=== PATIENT | female | born 1965 | race Asian ===

== ENCOUNTER → 2019-08-13 | Outpatient (CLI) | payer OTHER | END | disposition still patient (30) | LOC: LAB 02:07 | DX: Z03.818 Encounter for observation for suspected exposure to other biological agents ruled out (principal) | CPT/HCPCS: U0003-CS ==

== ENCOUNTER 2019-09-11 02:06 | Emergency (ER) | payer OTHER ==
[~2019-09-11] VITALS: Ht 154.9 cm; Wt 76.7 kg
[2019-09-11 02:18] VITALS: BP 133/77
--- NOTE | 2019-09-14 | NUR ---
RECEIVED A CALL FROM LAB REPORTING NEGATIVE COVID TEST RESULT
== END 2019-09-12 03:21 | disposition home or self-care (01) ==
LOC: ER 02:08
DX: Z03.818 Encounter for observation for suspected exposure to other biological agents ruled out (principal)
CPT/HCPCS: 99283; C9803; U0003

== ENCOUNTER → 2019-09-18 | Emergency (ER) | payer OTHER ==
[~2019-09-18] VITALS: Ht 154.9 cm; Wt 75.3 kg
[2019-09-18 08:00] VITALS: BP 126/85
--- NOTE | 2019-09-18 08:05 | NUR ---
COVID SWAB OBTAINED AND SENT TO LAB.
--- NOTE | 2019-09-18 08:16 | NUR ---
Patient discharged to home in stable condition. Written and verbal after care instructions given. Patient verbalizes understanding of instruction.
== END | disposition home or self-care (01) ==
LOC: ER 07:49
DX: Z11.59 Encounter for screening for other viral diseases (principal)
CPT/HCPCS: 99283; C9803; U0003

== ENCOUNTER 2019-10-02 01:42 | Emergency (ER) | payer OTHER ==
[~2019-10-02] VITALS: Ht 154.9 cm; Wt 75.3 kg
[2019-10-02 01:50] VITALS: BP 106/68
--- NOTE | 2019-10-02 02:03 | NUR ---
COVID SWAB COLLECTED AND SENT TO LAB
== END 2019-10-02 02:05 | disposition home or self-care (01) ==
LOC: ER 01:45
DX: Z11.59 Encounter for screening for other viral diseases (principal)
CPT/HCPCS: 99283; C9803; U0003

== ENCOUNTER 2019-10-07 04:06 | Emergency (ER) | payer OTHER ==
[~2019-10-07] VITALS: Ht 154.9 cm; Wt 75.3 kg
[2019-10-07 04:08] VITALS: BP 139/68
== END 2019-10-07 04:56 | disposition home or self-care (01) ==
LOC: ER 04:06
DX: Z03.818 Encounter for observation for suspected exposure to other biological agents ruled out (principal); I10 Essential (primary) hypertension
CPT/HCPCS: 99283; C9803; U0003

== ENCOUNTER 2019-10-17 10:31 | Emergency (ER) | payer OTHER ==
[~2019-10-17] VITALS: Ht 154.9 cm; Wt 73.5 kg
[2019-10-17 10:38] VITALS: BP 127/84
--- NOTE | 2019-10-17 11:00 | NUR ---
brookid 19 collected and sent to lab
--- NOTE | 2019-10-17 11:02 | NUR ---
Patient discharged to home in stable condition. Written and verbal after care instructions given. Patient verbalizes understanding of instruction.
== END 2019-10-17 11:02 | disposition home or self-care (01) ==
LOC: ER 10:32
DX: Z11.59 Encounter for screening for other viral diseases (principal); I10 Essential (primary) hypertension
CPT/HCPCS: 99283; C9803; U0003

== ENCOUNTER 2019-10-27 03:24 | Emergency (ER) | payer OTHER ==
[~2019-10-27] VITALS: Ht 154.9 cm; Wt 73.5 kg
[2019-10-27 03:27] VITALS: BP 138/64
--- NOTE | 2019-10-27 03:36 | NUR ---
CORONAVIRUS SWAB SAMPLE COLLECTED AND SENT TO THE LAB.
== END 2019-10-27 03:36 | disposition home or self-care (01) ==
LOC: ER 03:25
DX: Z20.828 Contact with and (suspected) exposure to other viral communicable diseases (principal); I10 Essential (primary) hypertension
CPT/HCPCS: 99283; C9803; U0003

== ENCOUNTER 2019-11-10 03:53 | Emergency (ER) | payer OTHER ==
[~2019-11-10] VITALS: Ht 154.9 cm; Wt 73.5 kg
[2019-11-10 03:55] VITALS: BP 143/62
--- NOTE | 2019-11-10 04:19 | NUR ---
COVID SWAB DONE AND SENT TO LAB
== END 2019-11-10 04:20 | disposition home or self-care (01) ==
LOC: ER 03:56
DX: Z20.828 Contact with and (suspected) exposure to other viral communicable diseases (principal); I10 Essential (primary) hypertension
CPT/HCPCS: 99283; C9803; U0003

== ENCOUNTER 2019-11-19 01:51 | Emergency (ER) | payer OTHER ==
[~2019-11-19] VITALS: Ht 154.9 cm; Wt 73.5 kg
[2019-11-19 01:55] VITALS: BP 125/62
--- NOTE | 2019-11-19 02:15 | NUR ---
COVID SWAB COLLECT AND SENT TO LAB.
== END 2019-11-19 02:15 | disposition home or self-care (01) ==
LOC: ER 01:52
DX: Z20.828 Contact with and (suspected) exposure to other viral communicable diseases (principal); I10 Essential (primary) hypertension
CPT/HCPCS: 99283; C9803; U0003

== ENCOUNTER 2019-12-02 02:43 | Emergency (ER) | payer OTHER ==
[~2019-12-02] VITALS: Ht 154.9 cm; Wt 73.5 kg
[2019-12-02 02:43] VITALS: BP 128/77
== END 2019-12-02 02:56 | disposition home or self-care (01) ==
LOC: ER 02:44
DX: Z20.828 Contact with and (suspected) exposure to other viral communicable diseases (principal); I10 Essential (primary) hypertension
CPT/HCPCS: 99283; C9803; U0003

== ENCOUNTER 2019-12-16 01:07 | Emergency (ER) | payer OTHER ==
[~2019-12-16] VITALS: Ht 154.9 cm; Wt 73.5 kg
[2019-12-16 01:10] VITALS: BP 128/62
--- NOTE | 2019-12-17 02:32 | NUR ---
LAB CALLED REGARDING NEGATIVE COVID RESULT.
== END 2019-12-16 01:23 | disposition home or self-care (01) ==
LOC: ER 01:11
DX: Z20.828 Contact with and (suspected) exposure to other viral communicable diseases (principal); I10 Essential (primary) hypertension
CPT/HCPCS: 99283; C9803; U0003

== ENCOUNTER 2019-12-20 18:00 | Emergency (ER) | payer OTHER ==
[~2019-12-20] VITALS: Ht 154.9 cm; Wt 72.6 kg
[2019-12-20 18:04] VITALS: BP 135/81
== END 2019-12-20 19:10 | disposition home or self-care (01) ==
LOC: ER 18:10
DX: J02.9 Acute pharyngitis, unspecified (principal); Z20.828 Contact with and (suspected) exposure to other viral communicable diseases; I10 Essential (primary) hypertension
CPT/HCPCS: 99283; C9803; U0003

== ENCOUNTER 2019-12-29 05:43 | Emergency (ER) | payer OTHER ==
[~2019-12-29] VITALS: Ht 154.9 cm; Wt 72.6 kg
[2019-12-29 05:45] VITALS: BP 126/61
== END 2019-12-29 06:08 | disposition home or self-care (01) ==
LOC: ER 05:43
DX: Z20.828 Contact with and (suspected) exposure to other viral communicable diseases (principal); I10 Essential (primary) hypertension
CPT/HCPCS: 99283; C9803; U0003

== ENCOUNTER 2020-01-05 02:16 | Emergency (ER) | payer OTHER ==
[~2020-01-05] VITALS: Ht 154.9 cm; Wt 72.6 kg
[2020-01-05 02:17] VITALS: BP 134/61
== END 2020-01-05 02:30 | disposition home or self-care (01) ==
LOC: ER 02:16
DX: Z20.828 Contact with and (suspected) exposure to other viral communicable diseases (principal); I10 Essential (primary) hypertension
CPT/HCPCS: 99283; C9803; U0003

== ENCOUNTER 2020-01-12 04:37 | Emergency (ER) | payer OTHER ==
[~2020-01-12] VITALS: Ht 154.9 cm; Wt 72.6 kg
[2020-01-12 04:40] VITALS: BP 132/72
== END 2020-01-12 04:53 | disposition home or self-care (01) ==
LOC: ER 04:37
DX: Z20.828 Contact with and (suspected) exposure to other viral communicable diseases (principal)
CPT/HCPCS: 99283; C9803; U0003

== ENCOUNTER 2020-01-27 01:06 | Emergency (ER) | payer OTHER ==
[~2020-01-27] VITALS: Ht 165.1 cm; Wt 72.6 kg
[2020-01-27 01:10] VITALS: BP 135/68
--- NOTE | 2020-01-27 01:42 | NUR ---
Patient discharged to home in stable condition. Written and verbal after care instructions given. Patient verbalizes understanding of instruction.
== END 2020-01-27 01:42 | disposition home or self-care (01) ==
LOC: ER 01:09
DX: Z20.828 Contact with and (suspected) exposure to other viral communicable diseases (principal); I10 Essential (primary) hypertension
CPT/HCPCS: 99283; C9803; U0003

== ENCOUNTER 2020-02-02 02:28 | Emergency (ER) | payer OTHER ==
[~2020-02-02] VITALS: Ht 165.1 cm; Wt 72.6 kg
[2020-02-02 02:29] VITALS: BP 137/85
== END 2020-02-02 02:50 | disposition home or self-care (01) ==
LOC: ER 02:28
DX: Z20.828 Contact with and (suspected) exposure to other viral communicable diseases (principal); I10 Essential (primary) hypertension
CPT/HCPCS: 99283; C9803; U0003

== ENCOUNTER 2020-02-09 04:48 | Emergency (ER) | payer OTHER ==
[~2020-02-09] VITALS: Ht 165.1 cm; Wt 72.6 kg
[2020-02-09 04:51] VITALS: BP 127/68
== END 2020-02-09 05:08 | disposition home or self-care (01) ==
LOC: ER 04:48
DX: Z20.828 Contact with and (suspected) exposure to other viral communicable diseases (principal); I10 Essential (primary) hypertension
CPT/HCPCS: 99283; C9803; U0003

== ENCOUNTER 2020-02-17 03:34 | Emergency (ER) | payer OTHER ==
[~2020-02-17] VITALS: Ht 165.1 cm; Wt 72.6 kg
[2020-02-17 03:34] VITALS: BP 121/69
== END 2020-02-17 03:50 | disposition home or self-care (01) ==
LOC: ER 03:38
DX: Z20.828 Contact with and (suspected) exposure to other viral communicable diseases (principal); I10 Essential (primary) hypertension
CPT/HCPCS: 99283; C9803; U0003

== ENCOUNTER 2020-02-23 02:34 | Emergency (ER) | payer OTHER ==
[~2020-02-23] VITALS: Ht 165.1 cm; Wt 72.6 kg
[2020-02-23 02:37] VITALS: BP 132/68
== END 2020-02-23 02:47 | disposition home or self-care (01) ==
LOC: ER 02:36
DX: Z20.828 Contact with and (suspected) exposure to other viral communicable diseases (principal); I10 Essential (primary) hypertension
CPT/HCPCS: 99283; C9803; U0003

== ENCOUNTER 2020-03-02 04:37 | Emergency (ER) | payer OTHER ==
[~2020-03-02] VITALS: Ht 165.1 cm; Wt 72.6 kg
[2020-03-02 04:40] VITALS: BP 132/64
--- NOTE | 2020-03-02 05:00 | NUR ---
alecia lafleur collected. sent to lab
== END 2020-03-02 05:01 | disposition home or self-care (01) ==
LOC: ER 04:44
DX: Z20.828 Contact with and (suspected) exposure to other viral communicable diseases (principal); I10 Essential (primary) hypertension
CPT/HCPCS: 99283; C9803; U0003

== ENCOUNTER 2020-03-08 02:32 | Emergency (ER) | payer OTHER ==
[~2020-03-08] VITALS: Ht 165.1 cm; Wt 72.6 kg
[2020-03-08 02:37] VITALS: BP 141/88
== END 2020-03-08 02:40 | disposition home or self-care (01) ==
LOC: ER 02:32
DX: Z20.828 Contact with and (suspected) exposure to other viral communicable diseases (principal); I10 Essential (primary) hypertension
CPT/HCPCS: 99283; C9803; U0003

== ENCOUNTER 2020-03-10 02:49 | Emergency (ER) | payer OTHER ==
[~2020-03-10] VITALS: Ht 165.1 cm; Wt 72.6 kg
[2020-03-10 02:52] VITALS: BP 125/64
== END 2020-03-10 03:30 | disposition home or self-care (01) ==
LOC: ER 02:50
DX: Z20.828 Contact with and (suspected) exposure to other viral communicable diseases (principal)
CPT/HCPCS: 99283; C9803; U0003

== ENCOUNTER 2020-03-17 03:26 | Emergency (ER) | payer OTHER ==
[~2020-03-17] VITALS: Ht 165.1 cm; Wt 72.6 kg
[2020-03-17 03:30] VITALS: BP 128/67
== END 2020-03-17 03:57 | disposition home or self-care (01) ==
LOC: ER 03:27
DX: Z20.828 Contact with and (suspected) exposure to other viral communicable diseases (principal)
CPT/HCPCS: 99283; C9803; U0003

== ENCOUNTER 2020-03-18 04:39 | Emergency (ER) | payer OTHER ==
[~2020-03-18] VITALS: Ht 165.1 cm; Wt 72.6 kg
[2020-03-18 04:41] VITALS: BP 127/68
== END 2020-03-18 05:12 | disposition home or self-care (01) ==
LOC: ER 04:46
DX: Z20.828 Contact with and (suspected) exposure to other viral communicable diseases (principal); I10 Essential (primary) hypertension
CPT/HCPCS: 99283; C9803; U0003

== ENCOUNTER 2020-03-22 02:55 | Emergency (ER) | payer OTHER ==
[~2020-03-22] VITALS: Ht 165.1 cm; Wt 72.6 kg
[2020-03-22 02:58] VITALS: BP 119/73
== END 2020-03-22 03:22 | disposition home or self-care (01) ==
LOC: ER 02:55
DX: Z20.822 Contact with and (suspected) exposure to COVID-19 (principal)
CPT/HCPCS: 99283; C9803; U0003

== ENCOUNTER 2020-03-29 02:02 | Emergency (ER) | payer OTHER ==
[~2020-03-29] VITALS: Ht 165.1 cm; Wt 72.6 kg
[2020-03-29 02:03] VITALS: BP 119/68
== END 2020-03-29 02:18 | disposition home or self-care (01) ==
LOC: ER 02:03
DX: Z20.822 Contact with and (suspected) exposure to COVID-19 (principal); I10 Essential (primary) hypertension
CPT/HCPCS: 99283; C9803; U0003

== ENCOUNTER 2020-03-31 03:19 | Emergency (ER) | payer OTHER ==
[~2020-03-31] VITALS: Ht 165.1 cm; Wt 72.6 kg
[2020-03-31 03:30] VITALS: BP 134/82
== END 2020-03-31 04:02 | disposition home or self-care (01) ==
LOC: ER 03:26
DX: Z20.822 Contact with and (suspected) exposure to COVID-19 (principal); I10 Essential (primary) hypertension
CPT/HCPCS: 99283; C9803; U0003

== ENCOUNTER 2020-04-05 03:08 | Emergency (ER) | payer OTHER ==
[~2020-04-05] VITALS: Ht 165.1 cm; Wt 72.6 kg
[2020-04-05 03:13] VITALS: BP 134/85
== END 2020-04-05 03:49 | disposition home or self-care (01) ==
LOC: ER 03:08
DX: Z20.822 Contact with and (suspected) exposure to COVID-19 (principal)
CPT/HCPCS: 99283; C9803; U0003

== ENCOUNTER 2020-04-07 03:29 | Emergency (ER) | payer OTHER ==
[~2020-04-07] VITALS: Ht 165.1 cm; Wt 72.6 kg
[2020-04-07 03:35] VITALS: BP 132/64
== END 2020-04-07 04:36 | disposition home or self-care (01) ==
LOC: ER 03:29
DX: Z20.822 Contact with and (suspected) exposure to COVID-19 (principal); I10 Essential (primary) hypertension
CPT/HCPCS: 99283; C9803; U0003

== ENCOUNTER 2020-04-12 02:23 | Emergency (ER) | payer OTHER ==
[~2020-04-12] VITALS: Ht 165.1 cm; Wt 72.6 kg
[2020-04-12 02:25] VITALS: BP 132/77
== END 2020-04-12 02:51 | disposition home or self-care (01) ==
LOC: ER 02:24
DX: Z20.822 Contact with and (suspected) exposure to COVID-19 (principal); I10 Essential (primary) hypertension
CPT/HCPCS: 99283; C9803; U0003

== ENCOUNTER 2020-04-14 01:59 | Emergency (ER) | payer OTHER ==
[~2020-04-14] VITALS: Ht 165.1 cm; Wt 72.6 kg
[2020-04-14 02:03] VITALS: BP 135/79
== END 2020-04-14 02:50 | disposition home or self-care (01) ==
LOC: ER 02:01
DX: Z20.822 Contact with and (suspected) exposure to COVID-19 (principal); I10 Essential (primary) hypertension
CPT/HCPCS: 99283; C9803; U0003

== ENCOUNTER 2020-04-19 00:59 | Emergency (ER) | payer OTHER ==
[~2020-04-19] VITALS: Ht 165.1 cm; Wt 72.6 kg
[2020-04-19 01:09] VITALS: BP 141/76
== END 2020-04-19 01:35 | disposition home or self-care (01) ==
LOC: ER 01:02
DX: Z20.822 Contact with and (suspected) exposure to COVID-19 (principal)
CPT/HCPCS: 99283; C9803; U0003

== ENCOUNTER 2020-04-20 23:37 | Emergency (ER) | payer OTHER ==
[~2020-04-20] VITALS: Ht 165.1 cm; Wt 72.6 kg
[2020-04-20 23:49] VITALS: BP 149/81
== END 2020-04-21 00:09 | disposition home or self-care (01) ==
LOC: ER 23:45
DX: Z20.822 Contact with and (suspected) exposure to COVID-19 (principal); I10 Essential (primary) hypertension
CPT/HCPCS: 99283; C9803; U0003

== ENCOUNTER 2020-04-26 01:47 | Emergency (ER) | payer OTHER ==
[~2020-04-26] VITALS: Ht 165.1 cm; Wt 61.2 kg
[2020-04-26 01:50] VITALS: BP 139/64
== END 2020-04-26 02:01 | disposition home or self-care (01) ==
LOC: ER 01:47
DX: Z20.822 Contact with and (suspected) exposure to COVID-19 (principal); I10 Essential (primary) hypertension; R03.0 Elevated blood-pressure reading, without diagnosis of hypertension
CPT/HCPCS: 99283; C9803; U0003

== ENCOUNTER 2020-05-03 01:48 | Emergency (ER) | payer OTHER ==
[~2020-05-03] VITALS: Ht 165.1 cm; Wt 61.2 kg
[2020-05-03 01:50] VITALS: BP 115/62
== END 2020-05-03 03:05 | disposition home or self-care (01) ==
LOC: ER 01:49
DX: Z20.822 Contact with and (suspected) exposure to COVID-19 (principal); I10 Essential (primary) hypertension
CPT/HCPCS: 99283; C9803; U0003

== ENCOUNTER 2020-05-05 02:01 | Emergency (ER) | payer OTHER ==
[~2020-05-05] VITALS: Ht 165.1 cm; Wt 61.2 kg
[2020-05-05 02:09] VITALS: BP 132/66
== END 2020-05-05 03:07 | disposition home or self-care (01) ==
LOC: ER 02:01
DX: Z20.822 Contact with and (suspected) exposure to COVID-19 (principal); I10 Essential (primary) hypertension
CPT/HCPCS: 99283; C9803; U0003

== ENCOUNTER 2020-05-10 01:23 | Emergency (ER) | payer OTHER ==
[~2020-05-10] VITALS: Ht 165.1 cm; Wt 61.2 kg
[2020-05-10 01:26] VITALS: BP 133/61
== END 2020-05-10 01:45 | disposition home or self-care (01) ==
LOC: ER 01:23
DX: Z20.822 Contact with and (suspected) exposure to COVID-19 (principal); I10 Essential (primary) hypertension
CPT/HCPCS: 99283; C9803; U0003

== ENCOUNTER 2020-05-19 01:12 | Emergency (ER) | payer OTHER ==
[~2020-05-19] VITALS: Ht 165.1 cm; Wt 61.2 kg
[2020-05-19 01:13] VITALS: BP 132/65
== END 2020-05-19 01:29 | disposition home or self-care (01) ==
LOC: ER 01:12
DX: Z20.822 Contact with and (suspected) exposure to COVID-19 (principal); I10 Essential (primary) hypertension
CPT/HCPCS: 99283; C9803; U0003

== ENCOUNTER 2020-05-24 02:17 | Emergency (ER) | payer OTHER ==
[~2020-05-24] VITALS: Ht 165.1 cm; Wt 61.2 kg
[2020-05-24 02:19] VITALS: BP 136/64
== END 2020-05-24 03:11 | disposition home or self-care (01) ==
LOC: ER 02:17
DX: Z20.822 Contact with and (suspected) exposure to COVID-19 (principal); I10 Essential (primary) hypertension
CPT/HCPCS: 99283; C9803; U0003

== ENCOUNTER 2020-05-31 03:01 | Emergency (ER) | payer OTHER ==
[~2020-05-31] VITALS: Ht 154.9 cm; Wt 79.8 kg
[2020-05-31 03:01] VITALS: BP 119/71
== END 2020-05-31 04:06 | disposition home or self-care (01) ==
LOC: ER 03:01
DX: Z20.822 Contact with and (suspected) exposure to COVID-19 (principal); I10 Essential (primary) hypertension
CPT/HCPCS: 99283; C9803; U0003

== ENCOUNTER 2020-06-09 02:36 | Emergency (ER) | payer OTHER ==
[~2020-06-09] VITALS: Ht 154.9 cm; Wt 79.8 kg
[2020-06-09 02:38] VITALS: BP 142/79
== END 2020-06-09 02:52 | disposition home or self-care (01) ==
LOC: ER 02:38
DX: Z20.822 Contact with and (suspected) exposure to COVID-19 (principal); I10 Essential (primary) hypertension
CPT/HCPCS: 99283; C9803; U0003

== ENCOUNTER 2020-06-13 22:55 | Emergency (ER) | payer OTHER ==
[~2020-06-13] VITALS: Ht 154.9 cm; Wt 79.8 kg
[2020-06-13 22:57] VITALS: BP 131/74
--- NOTE | 2020-06-13 23:28 | NUR ---
Patient discharged to home in stable condition. Written and verbal after care instructions given. Patient verbalizes understanding of instruction. Pt ambulatory with a steady gait
== END 2020-06-13 23:29 | disposition home or self-care (01) ==
LOC: ER 22:55
DX: Z20.822 Contact with and (suspected) exposure to COVID-19 (principal); I10 Essential (primary) hypertension
CPT/HCPCS: 99283; C9803; U0003

== ENCOUNTER 2020-06-21 03:29 | Emergency (ER) | payer OTHER ==
[~2020-06-21] VITALS: Ht 165.1 cm; Wt 62.6 kg
[2020-06-21 03:34] VITALS: BP 124/72
== END 2020-06-21 04:07 | disposition home or self-care (01) ==
LOC: ER 03:29
DX: Z20.822 Contact with and (suspected) exposure to COVID-19 (principal); I10 Essential (primary) hypertension
CPT/HCPCS: 99283; C9803; U0003

== ENCOUNTER 2020-06-27 23:28 | Emergency (ER) | payer OTHER ==
[~2020-06-27] VITALS: Ht 165.1 cm; Wt 62.1 kg
[2020-06-27 23:30] VITALS: BP 128/61
== END 2020-06-28 00:11 | disposition home or self-care (01) ==
LOC: ER 23:28
DX: Z20.822 Contact with and (suspected) exposure to COVID-19 (principal); I10 Essential (primary) hypertension
CPT/HCPCS: 99283; C9803; U0003

== ENCOUNTER 2020-07-05 02:46 | Emergency (ER) | payer OTHER ==
[~2020-07-05] VITALS: Ht 165.1 cm; Wt 68.0 kg
[2020-07-05 02:47] VITALS: BP 125/67
== END 2020-07-05 03:33 | disposition home or self-care (01) ==
LOC: ER 02:46
DX: Z20.822 Contact with and (suspected) exposure to COVID-19 (principal)
CPT/HCPCS: 99283; C9803; U0003

== ENCOUNTER 2020-07-12 02:58 | Emergency (ER) | payer OTHER ==
[~2020-07-12] VITALS: Ht 165.1 cm; Wt 68.0 kg
[2020-07-12 02:59] VITALS: BP 131/84
== END 2020-07-12 03:44 | disposition home or self-care (01) ==
LOC: ER 02:59
DX: Z20.822 Contact with and (suspected) exposure to COVID-19 (principal); I10 Essential (primary) hypertension
CPT/HCPCS: 99283; C9803; U0003

== ENCOUNTER 2020-08-02 03:56 | Emergency (ER) | payer OTHER ==
[~2020-08-02] VITALS: Ht 165.1 cm; Wt 68.0 kg
[2020-08-02 04:07] VITALS: BP 134/80
== END 2020-08-02 04:57 | disposition home or self-care (01) ==
LOC: ER 03:59
DX: Z20.822 Contact with and (suspected) exposure to COVID-19 (principal); I10 Essential (primary) hypertension
CPT/HCPCS: 99283; C9803; U0003

== ENCOUNTER 2020-08-09 00:20 | Emergency (ER) | payer OTHER ==
[~2020-08-09] VITALS: Ht 167.6 cm; Wt 68.0 kg
[2020-08-09 00:48] VITALS: BP 126/80
== END 2020-08-09 01:21 | disposition home or self-care (01) ==
LOC: ER 00:20
DX: Z20.822 Contact with and (suspected) exposure to COVID-19 (principal)
CPT/HCPCS: 99283; C9803; U0003

== ENCOUNTER 2020-08-16 03:25 | Emergency (ER) | payer OTHER ==
[~2020-08-16] VITALS: Ht 165.1 cm; Wt 68.0 kg
[2020-08-16 03:31] VITALS: BP 131/77
== END 2020-08-16 05:14 | disposition home or self-care (01) ==
LOC: ER 03:25
DX: Z20.822 Contact with and (suspected) exposure to COVID-19 (principal); I10 Essential (primary) hypertension
CPT/HCPCS: 99283; C9803; U0003

== ENCOUNTER 2020-08-25 02:29 | Emergency (ER) | payer OTHER ==
[~2020-08-25] VITALS: Ht 165.1 cm; Wt 68.0 kg
[2020-08-25 02:31] VITALS: BP 124/64
== END 2020-08-25 02:49 | disposition home or self-care (01) ==
LOC: ER 02:29
DX: Z20.822 Contact with and (suspected) exposure to COVID-19 (principal); I10 Essential (primary) hypertension
CPT/HCPCS: 99283; C9803; U0003

== ENCOUNTER 2020-09-06 03:59 | Emergency (ER) | payer OTHER ==
[~2020-09-06] VITALS: Ht 165.1 cm; Wt 68.0 kg
[2020-09-06 04:01] VITALS: BP 125/67
== END 2020-09-06 05:34 | disposition home or self-care (01) ==
LOC: ER 03:59
DX: Z20.822 Contact with and (suspected) exposure to COVID-19 (principal); I10 Essential (primary) hypertension
CPT/HCPCS: 99283; C9803; U0003

== ENCOUNTER 2020-09-14 08:02 | Emergency (ER) | payer OTHER ==
[~2020-09-14] VITALS: Ht 154.9 cm; Wt 88.9 kg
[2020-09-14 08:09] VITALS: BP 137/80
--- NOTE | 2020-09-14 08:12 | NUR ---
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 AOX4, NO SOB NOTED, NO SIGN OF ANY ACUTE DISTRESS NOTED. PT C/O SPART PAIN OF 5/10. DR ROLON AT BED SIDE AT THIS TIME. WILL CONTINUE WITH PLAN OF CARE
--- NOTE | 2020-09-14 08:24 | NUR ---
Patient discharged to home in stable condition. Written and verbal after care instructions given. Patient verbalizes understanding of instruction.
== END 2020-09-14 08:25 | disposition home or self-care (01) ==
LOC: ER 08:09
DX: S39.012A Strain of muscle, fascia and tendon of lower back, initial encounter (principal); I10 Essential (primary) hypertension; X50.0XXA Overexertion from strenuous movement or load, initial encounter; Y93.89 Activity, other specified; Y92.89 Other specified places as the place of occurrence of the external cause; Y99.0 Civilian activity done for income or pay

== ENCOUNTER 2021-01-26 14:43 | Inpatient (IN) | payer BC, OTHER ==
[~2021-01-26] VITALS: Ht 154.9 cm; Wt 87.5 kg
--- NOTE | 2021-01-26 15:02 | NUR ---
TO ER BED 6, C/O CHILLS, NAUSEA, VOMITNG AND DIARRHEA SINCE THURSDAY, AAOX3, BREATHING EVEN AND NON LABORED, CONNECTED TO MONITOR
--- NOTE | 2021-01-26 15:20 | NUR ---
URINE COLLECTED AND SENT TO LAB
[2021-01-26] MEDS ORDERED: IV NS 0.9% 1,000 ML BAG IV ONE (15:30)
[2021-01-26] MEDS ORDERED: Magnesium 1GM/D5W 100ML PREMIX 200 ML IV ONE (15:47)
[2021-01-26] MEDS ORDERED: ONDANSETRON HCL/PF 4 MG/2 ML VIAL ONE (15:47)
--- NOTE | 2021-01-26 15:50 | NUR ---
PILE DRIVING SUPERVISOR AT BEDSIDE
[2021-01-26] MEDS ORDERED: ONDANSETRON HCL/PF - ER 4 MG/2 ML VIAL IV ONE (16:00)
[2021-01-26] MEDS ORDERED: Magnesium 1GM/D5W 100ML PREMIX PIGGYBACK IV ONE (16:00)
[2021-01-26 16:04] LABS: BASOPHILS % (AUTO) 0.8 % (0.0-2.0); EOSINOPHILS % (AUTO) 2.3 % (0.0-6.0); HEMATOCRIT 43 % (33-45); HEMOGLOBIN 14.5 g/dL (11.5-14.8); LYMPHOCYTES # (AUTO) 1.8 K/uL (0.8-4.8); LYMPHOCYTES % (AUTO) 31.8 % (20.0-44.0); MEAN CORPUSCULAR HGB CONC 34 g/dl (31.0-36.0); MEAN CORPUSCULAR VOLUME 88 fL (82-100); MONOCYTES # (AUTO) 0.8 K/uL (0.1-1.30); MONOCYTES % (AUTO) 14.8 % (2.0-12.0); NEUTROPHILS # (AUTO) 2.8 K/uL (1.8-8.9); NEUTROPHILS % (AUTO) 50.3 % (43.0-81.0); PLATELET COUNT (AUTO) 218 K/uL (150-450); WHITE BLOOD COUNT (AUTO) 5.6 K/uL (4.3-11.0)
[2021-01-26 16:19] LABS: CALCIUM, SERUM 8.5 mg/dL (8.5-10.1); CARBON DIOXIDE 30 mmol/L (21-32); CHLORIDE 105 mmol/L (98-107); CREATININE 1.1 mg/dL (0.6-1.3); GLUCOSE 123 mg/dL (74-106); LIPASE 141 U/L (73-393); SODIUM SERUM 143 mmol/L (136-145); UREA NITROGEN, BLOOD 23 mg/dL (7-18)
[2021-01-26 16:21] LABS: POTASSIUM 2.3 mmol/L (3.5-5.1)
[2021-01-26] MEDS ORDERED: POTASSIUM CL. PREMIX PERIPHER. 50 ML IV SCH (16:30)
[2021-01-26] MEDS ORDERED: POTASSIUM CL. PREMIX PERIPHER. 100 ML ONE (16:30)
[2021-01-26] MEDS ORDERED: POTASSIUM CHLORIDE 20 MEQ TAB.PRT.SR PO ONE ×3 (16:30→23:30)
[2021-01-26 16:59] LABS: BILIRUBIN,URINE NEGATIVE (NEGATIVE); COLOR,URINE YELLOW (YELLOW); LEUKOCYTE ESTERASE ,URINE TRACE (NEGATIVE); NITRITE, URINE NEGATIVE (NEGATIVE); PROTEIN,URINE NEGATIVE (NEGATIVE); UGLUCOSE NEGATIVE (NEGATIVE); UROBILINOGEN,URINE 0.2 EU/dL (0.2)
[2021-01-26 17:11] LABS: BACTERIA,URINE None seen /HPF (None Seen); RBC,URINE 0-2 /HPF (0-2); SQUAMOUS EPITHELIAL CELL,UR 0-2 /HPF (None Seen)
--- NOTE | 2021-01-26 18:50 | NUR ---
LAB AT BEDSIDE FOR BLOOD DRAW
[2021-01-26 19:23] LABS: CALCIUM, SERUM 8.1 mg/dL (8.5-10.1); CREATININE 0.8 mg/dL (0.6-1.3); POTASSIUM 2.9 mmol/L (3.5-5.1)
--- NOTE | 2021-01-26 21:54 | NUR ---
REPORT GIVEN TO ISRAEL GUTIERREZ).
--- NOTE | 2021-01-26 22:19 | NUR ---
PT REANSFERRED TO 3W PER ACLS PROTOCOL.
[2021-01-26 22:32] VITALS: BP 129/75
[2021-01-26] MEDS ORDERED: HYDR25TA4 PO (23:01)
[2021-01-26] MEDS ORDERED: AMLO1CAP2 PO (23:01)
--- NOTE | 2021-01-26 23:06 | NUR ---
TELE/CEMETERY VAULT INSTALLER NOTE RECEIVED PT FROM E.R. @7282 VIA [facility] TO RM.[id number], ACCOMPANIED BY RN. CC: CHILLS, N/V, DIARRHEA SINCE THURSDAY, AND STARTED FEELING SOME PALPITATIONS AT HOME, SO SHE CAME TO THE E.R. PT AWAKE, A/OX4. AMBULATORY W/STEADY GAIT. SHE DENIES PAIN/DISCOMFORT AT THIS TIME. DENIES N/V, DENIES CHEST PAIN. STATED SHE HAD BM ABOUT ONE HOUR AGO, STILL SOMEWHAT LOOSE. REPORTS BM X5 TODAY, BUT GETTING "BETTER." NO RESPIRATORY DISTRESS NOTED. ON ROOM AIR. CONNECTED TO TELE MONITOR, CURRENTLY READING SR, HR 75. PT IN NO ACUTE DISTRESS. SAFETY MEASURES IN PLACE, BED IN LOWEST LOCKED POSITION, S/R UPX2, CALL LIGHT WITHIN REACH. WILL CONT TO MONITOR.
[2021-01-26] MEDS ORDERED: CEFTRIAXONE 1 G VIAL ONE (23:29)
[2021-01-26] MEDS ORDERED: IV D5/0.45 NACL 1,000 ML IV PRN (23:30)
[2021-01-26] MEDS ORDERED: ZOLPIDEM TARTRATE 5 MG TABLET PO PRN (23:30)
[2021-01-26] MEDS ORDERED: ONDANSETRON HCL/PF 4 MG/2 ML VIAL IVP PRN (23:30)
[2021-01-26] MEDS ORDERED: CEFTRIAXONE 1 G in IV D5W 50 ML IV SCH (23:30)
[2021-01-26] MEDS ORDERED: HYDROCODONE/APAP 5/325MG TABLET PO PRN (23:30)
[2021-01-26] MEDS ORDERED: MAGNESIUM HYDROXIDE 30 ML UDC PO PRN (23:30)
[2021-01-26] MEDS ORDERED: MAG HYDROX/AL HYDROX/SIMETH 30 ML UDC PO PRN (23:30)
[2021-01-26] MEDS ORDERED: ACETAMINOPHEN 325 MG TABLET PO PRN (23:30)
[2021-01-26] MEDS ORDERED: Z GUARD REMEDY 2 OZ OINT TP PRN (23:30)
--- NOTE | 2021-01-26 23:45 | NUR ---
RN NOTE ROCEPHIN 1GM TAKEN FROM [facility] BY CHARGE NURSE.
[2021-01-27 04:00] VITALS: BP 118/64
[2021-01-27 04:14] VITALS: BP 118/64
[2021-01-27 05:20] LABS: BASOPHILS % (AUTO) 0.8 % (0.0-2.0); EOSINOPHILS % (AUTO) 4.1 % (0.0-6.0); HEMATOCRIT 40 % (33-45); HEMOGLOBIN 13.3 g/dL (11.5-14.8); LYMPHOCYTES # (AUTO) 1.7 K/uL (0.8-4.8); LYMPHOCYTES % (AUTO) 33.9 % (20.0-44.0); MEAN CORPUSCULAR HGB CONC 34 g/dl (31.0-36.0); MEAN CORPUSCULAR VOLUME 91 fL (82-100); MONOCYTES # (AUTO) 0.7 K/uL (0.1-1.30); MONOCYTES % (AUTO) 13.6 % (2.0-12.0); NEUTROPHILS # (AUTO) 2.4 K/uL (1.8-8.9); NEUTROPHILS % (AUTO) 47.6 % (43.0-81.0); PLATELET COUNT (AUTO) 181 K/uL (150-450); RED BLOOD CELL COUNT(AUTO) 4.38 MIL/uL (4.0-5.2); WHITE BLOOD COUNT (AUTO) 5.1 K/uL (4.3-11.0)
[2021-01-27 05:27] LABS: CALCIUM, SERUM 7.9 mg/dL (8.5-10.1); CREATININE 0.8 mg/dL (0.6-1.3); MAGNESIUM 2.5 mg/dL (1.8-2.4); PHOSPHORUS 2.7 mg/dL (2.5-4.9); POTASSIUM 3.1 mmol/L (3.5-5.1)
--- NOTE | 2021-01-27 07:06 | NUR ---
TELE/RN CLOSING NOTE PT RESTING IN BED, EASILY AROUSABLE TO STIMULI. NO C/O PAIN OR DISCOMFORT AT THIS TIME. PT AMBULATES TO BR TO VOID. STEADY GAIT. TELE MONITOR READING SR, HR 87. PT REPORTS NO BM/NO LOOSE BM SINCE ADMISSION LAST NIGHT. NO ACUTE EVENTS DURING THE NIGHT. SAFETY MEASURES IN PLACE. ALL NEEDS ATTENDED TO.
[2021-01-27] MEDS ORDERED: PANTOPRAZOLE 40 MG TABLET.DR PO SCH (07:30)
--- NOTE | 2021-01-27 07:33 | NUR ---
SOLID WASTE MANAGEMENT ENGINEER OPENING NOTE PATIENT IN BED, AWAKE; A/O X 4. STABLE ON ROOM AIR, NO SOB OR S/S OF DISTRESS NOTED. IV ACCESS ON RAC #20 AND LAC #20 BOTH INTACT AND PATENT. ON TELE MONITORING SHOWING SR AT 70. SAFETY PRECAUTIONS IN PLACE: BED IN LOW, LOCKED POSITION; SIDERAILS UP X 2; CALL LIGHT WITHIN REACH. WILL CONTINUE TO MONITOR.
[2021-01-27 08:00] VITALS: BP 100/62
[2021-01-27] MEDS ORDERED: POTASSIUM CL. PREMIX PERIPHER. 50 ML IV SCH (11:00)
[2021-01-27] MEDS: POTASSIUM CHLORIDE 20 MEQ TAB.PRT.SR PO SCH (11:14)
[2021-01-27 12:00] VITALS: BP 119/63
[2021-01-27 16:00] VITALS: BP 112/74
[2021-01-27] MEDS ORDERED: CIPR250T4 PO (18:16)
--- NOTE | 2021-01-27 18:32 | NUR ---
DISCHARGE NOTE RECEIVED ORDER FOR DISCHARGE. PATIENT IS A/O X 4. STABLE ON ROOM AIR, NO SOB OR S/S OF DISTRESS NOTED. NO COMPLAINS OF PAIN OR ANY DISCOMFORT AT THIS TIME. PATIENT WAS GIVEN DISCHARGE INSTRUCTIONS BOTH VERBAL AND WRITTEN FORM. ALL BELONGINGS ACCOUNTED FOR, BELONGING SHEET SIGNED. IV ACCESS REMOVED, CATHETER TIP INTACT; PRESSURE DRESSING APPLIED. NO SIGNS OF BLEEDING NOTED. TELE MONITOR REMOVED. PATIENT LEFT IN STABLE CONDITION VIA PRIVATE CARE WITH FAMILY PRESENT.
== END 2021-01-27 18:40 | disposition home or self-care (01) | DRG 372 ==
LOC: ER 14:43 → TELE 21:56
PROVIDERS: ADMIT Student in an Organized Health Care Education/Training Program; ATTEND Nurse Practitioner Acute Care
DX: A04.9 Bacterial intestinal infection, unspecified (principal); N39.0 Urinary tract infection, site not specified; E87.6 Hypokalemia; Z20.822 Contact with and (suspected) exposure to COVID-19; I10 Essential (primary) hypertension; Z88.8 Allergy status to other drugs, medicaments and biological substances; I45.81 Long QT syndrome; Z79.899 Other long term (current) drug therapy
CPT/HCPCS: 36415; 71045-TC; 80048-TC; 81001; 83690-TC; 83735-TC; 84100-TC; 84484-TC; 85025-TC; 87081-TC; 87086-TC; C9803; G0378; J0696; J2405; J3475; J3480; J3490; J7030; J7040; J7060

== ENCOUNTER 2021-08-31 01:54 | Emergency (ER) | payer BC ==
[~2021-08-31] VITALS: Ht 154.9 cm; Wt 83.9 kg
[~2021-08-31 01:54] MED LIST: AMLO1CAP2 PO; CIPR250T4 PO
--- NOTE | 2021-08-31 02:05 | NUR ---
BIBS C/O HIGH BP AND RIGHT SIDED CHEST "HEAVINESS" SINCE 2300 BP AT TRIAGE 177/118. PATIENT ALERT AND ORIENTED X3. AMBULATORY WITH NON LABORED BREATHING. DENIES ANY OTHER DISCOMFORT. IN BED 06 ON MONITOR AND POX, AWAITING MD DALE.
--- NOTE | 2021-08-31 02:18 | NUR ---
IV LINE ESTABLISHED, LAC 18G. BLOOD COLLECTED AND SENT TO LAB
[2021-08-31] MEDS ORDERED: hydrALAZINE HCL IV 20 MG VIAL ONE (02:19)
[2021-08-31] MEDS ORDERED: ASPIRIN 325 MG TABLET ONE (02:19)
[2021-08-31] MEDS ORDERED: hydrALAZINE HCL IV 20 MG VIAL IV ONE (02:30)
[2021-08-31] MEDS ORDERED: ASPIRIN 325 MG TABLET PO ONE (02:30)
[2021-08-31 02:31] LABS: BASOPHILS # (AUTO) 0.1 K/uL (0.0-0.2); BASOPHILS % (AUTO) 0.8 % (0.0-2.0); EOSINOPHILS % (AUTO) 3.3 % (0.0-6.0); HEMATOCRIT 44 % (33-45); HEMOGLOBIN 15.1 g/dL (11.5-14.8); LYMPHOCYTES # (AUTO) 2.6 K/uL (0.8-4.8); LYMPHOCYTES % (AUTO) 37.7 % (20.0-44.0); MEAN CORPUSCULAR HGB CONC 34 g/dl (31.0-36.0); MEAN CORPUSCULAR VOLUME 89 fL (82-100); MONOCYTES # (AUTO) 0.6 K/uL (0.1-1.30); MONOCYTES % (AUTO) 8.5 % (2.0-12.0); NEUTROPHILS # (AUTO) 3.4 K/uL (1.8-8.9); NEUTROPHILS % (AUTO) 49.7 % (43.0-81.0); PLATELET COUNT (AUTO) 236 K/uL (150-450); WHITE BLOOD COUNT (AUTO) 6.9 K/uL (4.3-11.0)
[2021-08-31 02:43] LABS: CALCIUM, SERUM 9.2 mg/dL (8.5-10.1); CARBON DIOXIDE 33 mmol/L (21-32); CHLORIDE 105 mmol/L (98-107); GLUCOSE 133 mg/dL (74-106); SODIUM SERUM 141 mmol/L (136-145); UREA NITROGEN, BLOOD 15 mg/dL (7-18)
[2021-08-31 02:48] LABS: ALANINE AMINOTRANSFERASE 32 U/L (12-78); ALBUMIN 4.1 g/dL (3.4-5.0); ALKALINE PHOSPHATASE 121 U/L (46-116); ASPARTATE AMINOTRANSFERASE 20 U/L (15-37); BILIRUBIN,DIRECT 0.2 mg/dL (0.0-0.2); BILIRUBIN,TOTAL 0.8 mg/dL (0.2-1.0); TOTAL PROTEIN, SERUM 8.6 g/dL (6.4-8.2)
[2021-08-31] MEDS ORDERED: POTASSIUM CHLORIDE 20 MEQ TAB.PRT.SR PO ONE ×2 (03:00→03:06)
[2021-08-31 04:49] VITALS: BP 94/82
--- NOTE | 2021-08-31 04:49 | NUR ---
Patient discharged to home in stable condition. Written and verbal after care instructions given. Patient verbalizes understanding of instruction.
--- NOTE | 2021-08-31 04:49 | NUR ---
IV CANNULA REMOVED
== END 2021-08-31 04:50 | disposition home or self-care (01) ==
LOC: ER 02:00
DX: I16.0 Hypertensive urgency (principal); R07.89 Other chest pain; E87.6 Hypokalemia; I10 Essential (primary) hypertension; Z88.8 Allergy status to other drugs, medicaments and biological substances; Z79.899 Other long term (current) drug therapy
CPT/HCPCS: 36415; 71045; 80048; 80076; 84484 ×2; 85025; 85730; 93005; 96374; 99285; J0360

== ENCOUNTER 2023-11-14 02:13 | Inpatient (IN) | payer BC ==
[~2023-11-14] VITALS: Ht 152.4 cm; Wt 93.9 kg
[2023-11-14 02:41] LABS: BASOPHILS # (AUTO) 0.1 K/uL (0.0-0.2); BASOPHILS % (AUTO) 1.1 % (0.0-2.0); EOSINOPHILS # (AUTO) 0.2 K/uL (0.0-0.7); HEMATOCRIT 48 % (33-45); LYMPHOCYTES # (AUTO) 2.6 K/uL (0.8-4.8); LYMPHOCYTES % (AUTO) 33.9 % (20.0-44.0); MEAN CORPUSCULAR HEMOGLOBIN 29 PG (26.0-33.0); MEAN CORPUSCULAR HGB CONC 33 g/dl (31.0-36.0); MEAN CORPUSCULAR VOLUME 88 fL (82-100); MONOCYTES # (AUTO) 0.7 K/uL (0.1-1.30); MONOCYTES % (AUTO) 9.2 % (2.0-12.0); NEUTROPHILS # (AUTO) 4.2 K/uL (1.8-8.9); NEUTROPHILS % (AUTO) 53.8 % (43.0-81.0); PLATELET COUNT (AUTO) 265 K/uL (150-450); RED BLOOD CELL COUNT(AUTO) 5.46 MIL/uL (4.0-5.2); RED CELL DISTRIBUTION WIDTH 14.2 % (11.5-15.0); WHITE BLOOD COUNT (AUTO) 7.7 K/uL (4.3-11.0)
[2023-11-14] MEDS ORDERED: DILTIAZEM HCL 25 MG IV ONE (02:45)
[2023-11-14 02:47] LABS: CALCIUM, SERUM 9.9 mg/dL (8.5-10.1); CARBON DIOXIDE 29 mmol/L (21-32); CHLORIDE 103 mmol/L (98-107); CREATININE 1.1 mg/dL (0.6-1.3); GLUCOSE 134 mg/dL (74-106); POTASSIUM 3.2 mmol/L (3.5-5.1); SODIUM SERUM 141 mmol/L (136-145); UREA NITROGEN, BLOOD 15 mg/dL (7-18)
[2023-11-14 02:53] LABS: ALANINE AMINOTRANSFERASE 25 U/L (12-78); ALKALINE PHOSPHATASE 187 U/L (46-116); ASPARTATE AMINOTRANSFERASE 9 U/L (15-37); BILIRUBIN,DIRECT 0.2 mg/dL (0.0-0.2); BILIRUBIN,TOTAL 0.9 mg/dL (0.2-1.0); TOTAL PROTEIN, SERUM 8.8 g/dL (6.4-8.2)
[2023-11-14] MEDS: DILTIAZEM HCL 50 MG IV IV ONE (03:13)
--- NOTE | 2023-11-14 03:24 | NUR ---
bed 103
[2023-11-14] MEDS ORDERED: ACETAMINOPHEN 325 MG TABLET PO PRN (03:30)
[2023-11-14] MEDS ORDERED: MAG HYDROX/AL HYDROX/SIMETH 30 ML UDC PO PRN (03:30)
[2023-11-14] MEDS ORDERED: MAGNESIUM HYDROXIDE 30 ML UDC PO PRN (03:30)
[2023-11-14] MEDS ORDERED: ONDANSETRON HCL/PF 4 MG/2 ML VIAL IVP PRN (03:30)
[2023-11-14 03:50] LABS: PHOSPHORUS 4.1 mg/dL (2.5-4.9)
[2023-11-14 04:00] VITALS: BP 155/86; TEMP 98.1; O2SAT 97
--- NOTE | 2023-11-14 04:00 | NUR ---
RN NOTE RECEIVED PT FROM ER VIA GURNEY ACCOMPANIED BY 2 ER STAFF AND TRANSFERRED TO BED INDEPENDENTLY. PT IS A/OX4;ON ROOM AIR WITH RESPIRATIONS EVEN AND UNLABORED. AFIB ON MONITOR. COMPREHENSIVE PHYSICAL ASSESSMENT AND PATIENT CARE DONE. CALL LIGHT WITHIN REACH, SAFETY MEASURES IN PLACE, WILL CONTINUE MONITOR AND ASSESS THROUGHOUT THE SHIFT. WILL CARRY OUT MD ORDERS ACCORDINGLY. SPECTROGRAPH OPERATOR MADE AWARE.
[2023-11-14] MEDS: POTASSIUM CHLORIDE 20 MEQ POWDER PACKET PO ONE (04:12)
[2023-11-14] MEDS: METOPROLOL SUCCINATE 25 MG TAB.SR.24H PO SCH (05:28)
[2023-11-14 05:51] LABS: THYROID STIMULATING HORMONE 1.25 uIU/mL (0.358-3.74)
--- NOTE | 2023-11-14 06:41 | NUR ---
journalism intern closing notes Pts remain in bed a/o x4 on r/a on tele monitoring afib hr 124 , no sob no distress noted. will endorse to rn day shift for continuity of care
--- NOTE | 2023-11-14 07:20 | NUR ---
PASTE UP WORKER OPENING NOTES Received pt awake in bed. AOX4 with no complaints at this time. Pt is on a external shelter monitor reading 93 AFIB. Patient states she feels a little palpitation. On room air and tolerating it well. IV access on RAC 20G patent and intact. HOB elevated to pts comfort. Siderails up at all times x3. Bed locked and at its lowest height for safety. Call light within reach. Care is ongoing.
[2023-11-14 07:26] LABS: PARTIAL THROMBOPLASTIN TIME 27.7 SEC (24.3-34.3); PROTHROMBIN TIME 10.6 SECS (9.2-11.1)
--- NOTE | 2023-11-14 07:51 | NUR ---
ROOM WORKER NOTES Seen and evaluated by Dr. Patton at bedside.
[2023-11-14 08:00] VITALS: BP 130/86; TEMP 98.1; O2SAT 98
[2023-11-14] MEDS ORDERED: ENOXAPARIN SODIUM 100 MG/ML DISP.SYRIN SQ SCH ×2 (09:00)
[2023-11-14] MEDS ORDERED: PANTOPRAZOLE 40 MG VIAL IV SCH (09:00)
[2023-11-14] MEDS ORDERED: AMIODARONE 450 MG in IV D5W 250 ML IV PRN (09:00)
[2023-11-14 09:07] LABS: CHOLESTEROL 142 mg/dL (<200); HDL CHOLESTEROL 44 mg/dL (40-60); LDL 86 mg/dL (0-99); TRIGLYCERIDES 51 mg/dL (30-150)
[2023-11-14] MEDS: AMIODARONE 150 MG in IV D5W 100 ML IV ONE (09:16)
[2023-11-14] MEDS: AMIODARONE 450 MG in IV D5W 241 ML IV PRN (09:39)
[2023-11-14] MEDS: PANTOPRAZOLE 40 MG TABLET.DR PO SCH (09:55)
[2023-11-14] MEDS: POTASSIUM CHLORIDE 20 MEQ TAB.PRT.SR PO SCH (09:55)
[2023-11-14] MEDS: APIXABAN 5 MG TABLET PO SCH (09:56)
--- NOTE | 2023-11-14 11:00 | NUR ---
RN NOTES LEFT ARM ULTRASOUND PERFORMED TO IDENTIFY ADEQUATE VEIN FOR MIDLINE INSERTION. LEFT ARM PREPPED USING STERILE TECHNIQUE. POWERGLIDE 18G/10CM WAS INSERTED AT LEFT BASILIC VEIN WITH EASE, GOOD NON PULSATILE BLOOD RETURN AND SECURED WITH INTERLOCK DEVICE. DRESSED USING NORMAL STERILE FASHION. EACH PORT WAS ASPIRATED WITH VENOUS BLOOD AND EACH PORT WAS FLUSHED WITH 10ML OF NORMAL SALINE. PROCEDURE WELL TOLERATED BY THE PT. SUPERVISED BY DR.EM MCFARLAND PhD. ENDORSED TO BEDSIDE RN.
[2023-11-14 12:00] VITALS: BP 114/70; TEMP 97.2; O2SAT 95
[2023-11-14] MEDS ORDERED: IV NS 0.9% 250 ML IV PRN (14:30)
--- NOTE | 2023-11-14 15:39 | NUR ---
SLAG PRODUCTION WORKER NOTRS Amiodarone IV titrated to 0.5mg as ordered by RN.
[2023-11-14 16:00] VITALS: BP 121/79; TEMP 97.5; O2SAT 95
--- NOTE | 2023-11-14 18:42 | NUR ---
PLANE TABLEMAN NOTES All due meds and tx given as ordered. All needs attended to. Still on amiodarone drip and reading A-fib at HR 72. HOB elevated to pts comfort. Siderails up at all times x2. Bed locked and at its lowest height for safety. Call light within reach. Will endorse to oncoming nurse.
--- NOTE | 2023-11-14 19:20 | NUR ---
BUSINESS OWNER/ENGINEER NOTES Patient complaints of pain on the FROILAN midline. When touched it is warm to touch. FROILAN midline taken out and offered ice pack but patient said no.
--- NOTE | 2023-11-14 19:30 | NUR ---
RN OPENING NOTES RECEIVED PATIENT RESTING COMFORTABLY IN BED, AWAKE. A/O X4, NO ACUTE DISTRESS NOTED AT THIS TIME. DENIES PAIN. AFEBRILE. ON EXTERNAL MONITOR READING 81 AFIB. TOLERATING ROOM AIR AT THIS TIME 98% SPO2. IV ACCESS ON RIGHT AC #20G, PATENT, INTACT, INFUSING AMIODARONE AT 0.5MG. PT IS AMBULATORY, ABLE TO MAKE NEEDS KNOWN. REMINDED PT TO CALL FOR ASSISTANCE. ALL SAFETY MEASURES IMPLEMENTED: SIDE RAILS UP AT ALL TIMES, BED LOCKED AND IN LOWEST POSITION. CALL LIGHT AND BED TABLE ON EASY REACH. WILL CONTINUE PLAN OF CARE.
[2023-11-14 20:00] VITALS: BP 131/76; TEMP 98.2; O2SAT 97
[2023-11-15] VITALS: BP 131/91; TEMP 97.7; O2SAT 98
[2023-11-15 04:00] VITALS: BP 133/85; TEMP 98.3; O2SAT 98
--- NOTE | 2023-11-15 06:45 | NUR ---
RN CLOSING NOTES PATIENT ON BED, AWAKE. REMAINS STABLE, AFEBRILE. NO SOB NOTED AT THIS TIME. NO C/O PAIN OR ANY DISCOMFORT. AFEBRILE. PT WITH CONTROLLED AFIB HR 80'S. TOLERATING ROOM AIR AT THIS TIME 97%. IV ACCESS ON RIGHT AC #20G, PATENT, INTACT, INFUSING AMIODARONE AT 0.5MG. ALL DUE MEDS GIVEN ORDERED. KEPT CLEAN AND COMFORTABLE. ALL SAFETY MEASURES MAINTAINED. WILL ENDORSE TO INCOMING SHIFT RN.
--- NOTE | 2023-11-15 07:17 | NUR ---
CEMENT BASED MATERIALS PUMP TENDER OPENING NOTES Received pt awake in bed. AOX4 with no complaints at this time. Pt is on a external cruise coordinator reading 79 AFIB controlled. Pt is on room air and tolerating it well. IV access on RAC 20G patent and intact anc currently on Amiodarone drip. HOB elevated to pts comfort. Siderails up at all times x3. Bed locked and at its lowest height for safety. Call light within reach. Care is ongoing.
[2023-11-15 08:00] VITALS: BP 112/81; TEMP 98.2; O2SAT 97
--- NOTE | 2023-11-15 08:10 | NUR ---
DISPATCH MANAGER NOTES Dr. Patton at bedside with orders to stop the Amiodarone drip and discussed with the patient that she may need a cardioversion. Patient stated she will need a few minutes for her decision. Noted and carried out.
[2023-11-15 08:46] LABS: BASOPHILS # (AUTO) 0.1 K/uL (0.0-0.2); BASOPHILS % (AUTO) 0.7 % (0.0-2.0); EOSINOPHILS # (AUTO) 0.3 K/uL (0.0-0.7); EOSINOPHILS % (AUTO) 2.9 % (0.0-6.0); HEMATOCRIT 47 % (33-45); HEMOGLOBIN 15.5 g/dL (11.5-14.8); LYMPHOCYTES % (AUTO) 32.6 % (20.0-44.0); MEAN CORPUSCULAR HEMOGLOBIN 29 PG (26.0-33.0); MEAN CORPUSCULAR HGB CONC 33 g/dl (31.0-36.0); MEAN CORPUSCULAR VOLUME 90 fL (82-100); MONOCYTES # (AUTO) 0.8 K/uL (0.1-1.30); MONOCYTES % (AUTO) 8.6 % (2.0-12.0); NEUTROPHILS % (AUTO) 55.2 % (43.0-81.0); PLATELET COUNT (AUTO) 242 K/uL (150-450); RED BLOOD CELL COUNT(AUTO) 5.26 MIL/uL (4.0-5.2); RED CELL DISTRIBUTION WIDTH 14.2 % (11.5-15.0); WHITE BLOOD COUNT (AUTO) 9.1 K/uL (4.3-11.0)
[2023-11-15 08:53] LABS: CALCIUM, SERUM 9.2 mg/dL (8.5-10.1); CREATININE 0.7 mg/dL (0.6-1.3); POTASSIUM 4.9 mmol/L (3.5-5.1)
[2023-11-15] MEDS: BENAZEPRIL HCL 20 MG TABLET PO SCH (08:55)
[2023-11-15] MEDS: AMLODIPINE BESYLATE 5 MG TABLET PO SCH (08:55)
[2023-11-15] MEDS: METOPROLOL SUCCINATE 25 MG TAB.SR.24H PO SCH (08:56)
[2023-11-15 12:00] VITALS: BP 112/79; TEMP 98.5; O2SAT 97
--- NOTE | 2023-11-15 12:40 | NUR ---
AIR TRAFFIC CONTROL SUPERVISOR NOTES Ben Russell NP at bedside and patient agreeable to cardioversion. Procedure and anaesthesia consent signed and copy given to patient.
[2023-11-15 16:00] VITALS: BP 110/77; TEMP 98.6; O2SAT 97
--- NOTE | 2023-11-15 18:54 | NUR ---
DRESSED POULTRY GRADER CLOSING NOTES All due meds and tx given as ordered. Pt tolerated everything well. All needs attended to. Pt is on room air and tolerating it well. Made patient aware that she will need to be NPO after midnight for the procedure tomorrow. Patient verbalized understanding. HOB elevated to pts comfort. Siderails up at all times x2. Bed locked and at its lowest height for safety. Call light within reach. Will endorse to oncoming nurse.
[2023-11-15 20:00] VITALS: BP 111/82; TEMP 97.9; O2SAT 95
--- NOTE | 2023-11-15 20:00 | NUR ---
TOMBSTONE ERECTOR NOTE PT IN BED AWAKE. A/O X 4, NO SOB, NO DISTRESS OR DISCOMFORT NOTED. DENIES PAIN. ON TELE A FIB CONTROLLED HR 77. RAC #20 G SL INTACT AND PATENT. REMINDED PT NOTHING TO EAT AND DRINK AFTER MIDNIGHT AND WILL BE TRANSFER TO ICU AT 0400 PT STATES "YES". ALL NEEDS ATTENDED. KEPT HER DRY AND CLEAN. VSS. CONTINUE TO MONITOR HER.
--- NOTE | 2023-11-15 21:56 | NUR ---
STEEL WORKER NOTE PT IS CONVERTED TO SR HR 84. PT ALSO INFORMED.
--- NOTE | 2023-11-15 22:38 | NUR ---
AUTOMATIC SPOOLER OPERATOR NOTE INFANT LEAD TEACHER RAFAT INFORMED REGARDING THE RHYTHEM CHANGED TO SR FROM A FIB AND PT IS GOING FOR CARDIOVERSION, INFANT LEAD TEACHER GAVE NEW ORDER TO DO EKG AT 0100.
[2023-11-16] VITALS: BP 139/81; TEMP 97.9; O2SAT 99
--- NOTE | 2023-11-16 02:00 | NUR ---
AUTO PORTER NOTE PT EKG RESULT SR. PT IN NO DISTRESS OR DISCOMFORT AT THIS TIME/
[2023-11-16 04:00] VITALS: BP 124/77; TEMP 98.2; O2SAT 95
[2023-11-16 06:24] LABS: BASOPHILS # (AUTO) 0.1 K/uL (0.0-0.2); BASOPHILS % (AUTO) 1.1 % (0.0-2.0); EOSINOPHILS # (AUTO) 0.2 K/uL (0.0-0.7); EOSINOPHILS % (AUTO) 3.3 % (0.0-6.0); HEMATOCRIT 43 % (33-45); HEMOGLOBIN 14.3 g/dL (11.5-14.8); LYMPHOCYTES # (AUTO) 2.2 K/uL (0.8-4.8); LYMPHOCYTES % (AUTO) 32.8 % (20.0-44.0); MEAN CORPUSCULAR HEMOGLOBIN 29 PG (26.0-33.0); MEAN CORPUSCULAR HGB CONC 33 g/dl (31.0-36.0); MEAN CORPUSCULAR VOLUME 89 fL (82-100); MONOCYTES # (AUTO) 0.6 K/uL (0.1-1.30); MONOCYTES % (AUTO) 9.3 % (2.0-12.0); NEUTROPHILS # (AUTO) 3.5 K/uL (1.8-8.9); NEUTROPHILS % (AUTO) 53.5 % (43.0-81.0); PLATELET COUNT (AUTO) 211 K/uL (150-450); RED BLOOD CELL COUNT(AUTO) 4.87 MIL/uL (4.0-5.2); WHITE BLOOD COUNT (AUTO) 6.6 K/uL (4.3-11.0)
--- NOTE | 2023-11-16 06:24 | NUR ---
SPECIALTY SALES CONSULTANT NOTE PT IN BED, EASILY AROUSABLE. NO DISTRESS OR DISCOMFORT NOTED. DENIES PAIN. ON TELE SR HR 60. SIDE RAILS UP X 2 AND CALL LIGHT WITHIN REACH. WILL ENDORSE TO DAY SHIFT NURSE FOR CONTINUE TO CARE.
--- NOTE | 2023-11-16 06:41 | NUR ---
CANTILEVER CRANE OPERATOR NOTE DR SORENSEN MADE AWARE ABOUT ON TELE SR, PER MD PROCEDURE CANCEL AND CHARGE AND NURSING SLD INCLUSION TEACHER MADE AWARE.
[2023-11-16 06:46] LABS: CALCIUM, SERUM 9.2 mg/dL (8.5-10.1); CREATININE 0.7 mg/dL (0.6-1.3); POTASSIUM 3.5 mmol/L (3.5-5.1)
--- NOTE | 2023-11-16 07:25 | NUR ---
MARINE DESIGN ENGINEER OPENING NOTES Received pt awake in bed. AOX4 with no complaints at this time. Pt is on a external sales associate cashier reading 61 sinus rhythm. Pt is on room air and tolerating it well. IV access on RAC 20G patent and intact saline lock. HOB elevated to pts comfort. Siderails up at all times x3. Bed locked and at its lowest height for safety. Call light within reach. Care is ongoing.
[2023-11-16 08:00] VITALS: BP 139/83; TEMP 98.1; O2SAT 96
[2023-11-16 08:29] VITALS: BP 139/83
[2023-11-16] MEDS: FLECAINIDE ACETATE (100 MG) 100 MG TABLET PO SCH (09:33)
[2023-11-16] MEDS ORDERED: AMLO10TA4 PO (12:02)
[2023-11-16] MEDS ORDERED: APIX5TAB PO (12:02)
[2023-11-16] MEDS ORDERED: BENA40TA8 PO (12:02)
[2023-11-16] MEDS ORDERED: METO-357 PO (12:02)
[2023-11-16] MEDS ORDERED: FLEC100T2 PO (12:02)
--- NOTE | 2023-11-16 12:40 | NUR ---
CARPENTER MAINTENANCE NOTES Patient cleared for discharge. Educated patient on diagnosis and medications that the doctor prescribed. Also notified that patient that Dr. Patton would like to follow up with her in [address]. Sanchez information provided to the patient and patient verbalized understanding. IV access taken out. Escorted patient with her son to her husbands car.
== END 2023-11-16 12:40 | disposition home or self-care (01) | DRG 309 ==
LOC: ER 02:16 → TELE1 03:29 → TELE-TD 09:18 → TELE1 11-15 14:23
PROVIDERS: ATTEND Nurse Practitioner Acute Care
DX: I48.91 Unspecified atrial fibrillation (principal); Z68.41 Body mass index [BMI] 40.0-44.9, adult; G47.33 Obstructive sleep apnea (adult) (pediatric); E66.01 Morbid (severe) obesity due to excess calories; E87.6 Hypokalemia; I10 Essential (primary) hypertension; Z88.8 Allergy status to other drugs, medicaments and biological substances; R06.83 Snoring; Z71.3 Dietary counseling and surveillance
CPT/HCPCS: 36415; 71045-TC; 80048-TC; 80061-TC; 80076-TC; 83735-TC; 84100-TC; 84443-TC; 84484-TC; 85025-TC; 85730-TC; 93307-TC; A4223; G0378; J0282; J3490; J7050; J7060

== ENCOUNTER 2024-01-12 00:25 | Emergency (ER) | payer BC ==
[~2024-01-12] VITALS: Ht 154.9 cm; Wt 87.1 kg
[~2024-01-12 00:25] MED LIST changes: +AMLO10TA4 PO; -AMLO1CAP2 PO; +APIX5TAB PO; +BENA40TA8 PO; -CIPR250T4 PO; +FLEC100T2 PO; +METO-357 PO
[2024-01-12 01:07] LABS: BASOPHILS # (AUTO) 0.1 K/uL (0.0-0.2); BASOPHILS % (AUTO) 1.5 % (0.0-2.0); EOSINOPHILS # (AUTO) 0.2 K/uL (0.0-0.7); EOSINOPHILS % (AUTO) 4.4 % (0.0-6.0); HEMATOCRIT 47 % (33-45); HEMOGLOBIN 15.4 g/dL (11.5-14.8); LYMPHOCYTES # (AUTO) 1.7 K/uL (0.8-4.8); LYMPHOCYTES % (AUTO) 35.7 % (20.0-44.0); MEAN CORPUSCULAR HEMOGLOBIN 29 PG (26.0-33.0); MEAN CORPUSCULAR HGB CONC 33 g/dl (31.0-36.0); MEAN CORPUSCULAR VOLUME 89 fL (82-100); MONOCYTES # (AUTO) 0.5 K/uL (0.1-1.30); MONOCYTES % (AUTO) 10.4 % (2.0-12.0); NEUTROPHILS # (AUTO) 2.3 K/uL (1.8-8.9); PLATELET COUNT (AUTO) 190 K/uL (150-450); RED BLOOD CELL COUNT(AUTO) 5.23 MIL/uL (4.0-5.2); RED CELL DISTRIBUTION WIDTH 14.2 % (11.5-15.0); WHITE BLOOD COUNT (AUTO) 4.8 K/uL (4.3-11.0)
[2024-01-12 01:23] LABS: ALANINE AMINOTRANSFERASE 23 U/L (12-78); ALBUMIN 3.5 g/dL (3.4-5.0); ALKALINE PHOSPHATASE 171 U/L (46-116); ASPARTATE AMINOTRANSFERASE 11 U/L (15-37); BILIRUBIN,DIRECT 0.1 mg/dL (0.0-0.2); BILIRUBIN,TOTAL 0.5 mg/dL (0.2-1.0); CALCIUM, SERUM 9.1 mg/dL (8.5-10.1); CARBON DIOXIDE 28 mmol/L (21-32); CHLORIDE 106 mmol/L (98-107); GLUCOSE 135 mg/dL (74-106); NT-PRO BNP 415 pg/mL (0-125); POTASSIUM 3.5 mmol/L (3.5-5.1); SODIUM SERUM 142 mmol/L (136-145); TOTAL PROTEIN, SERUM 7.9 g/dL (6.4-8.2); UREA NITROGEN, BLOOD 9 mg/dL (7-18)
[2024-01-12 04:09] VITALS: BP 159/104; TEMP 98.1; O2SAT 99
== END 2024-01-12 04:09 | disposition home or self-care (01) ==
LOC: ER 00:29
DX: R00.2 Palpitations (principal); R07.89 Other chest pain; R11.0 Nausea; R00.1 Bradycardia, unspecified; R79.89 Other specified abnormal findings of blood chemistry; I10 Essential (primary) hypertension; I48.91 Unspecified atrial fibrillation; Z79.01 Long term (current) use of anticoagulants; Z79.899 Other long term (current) drug therapy; Z88.5 Allergy status to narcotic agent
CPT/HCPCS: 36415; 71045-TC; 80048-TC; 80076-TC; 83880; 84484-TC; 85025-TC